=== PATIENT | female | born 1990 | race Caucasian/White ===

== ENCOUNTER 2016-10-29 20:56 | Emergency (ER) | payer OTHER ==
[~2016-10-29] VITALS: Ht 160 cm; Wt 68.0 kg
[2016-10-29 21:03] VITALS: BP 134/73
--- NOTE | 2016-10-29 21:10 | NUR ---
TO ER OF1
--- NOTE | 2016-10-29 21:29 | NUR ---
Patient being evaluated by physician.
[2016-10-29 21:40] VITALS: BP 134/73
--- NOTE | 2016-10-29 21:40 | NUR ---
Patient discharged with v/s stable. Written and verbal after care instructions given and explained. Patient verbalized understanding. Ambulatory with steady gait. All questions addressed prior to discharge. Advised to follow up with PMD.
== END 2016-10-29 21:40 | disposition home or self-care (01) ==
LOC: MED 20:56
DX: O26.893 Other specified pregnancy related conditions, third trimester (principal); S60.455A Superficial foreign body of left ring finger, initial encounter; Z3A.41 41 weeks gestation of pregnancy; X58.XXXA Exposure to other specified factors, initial encounter; Y93.89 Activity, other specified; Y92.89 Other specified places as the place of occurrence of the external cause; Y99.8 Other external cause status
CPT/HCPCS: 99284